=== PATIENT | male | born 1970 | race Caucasian/White ===

== ENCOUNTER 2019-11-26 20:56 | Emergency (ER) | payer MEDICAID, OTHER ==
[~2019-11-26] VITALS: Ht 185.4 cm; Wt 81.6 kg
[2019-11-26 21:05] VITALS: BP 145/86
--- NOTE | 2019-11-26 21:11 | NUR ---
ED Nurse Note: pt ambulated into ed from home CO s/p cellulitis on right buttock x 2 months. Pt states that he was recently seen at an Urgent Care at [facility] and was given a regimen of antibiotics and topical ointment. Previous tx was helpful for a short time but cellulitis returned shortly after ending regimen. Pt aao x 4, ambulates with steady gait. Site of cellulitis dry, cool to touch. ERMD at bedside. Awaiting further orders. Will continue to monitor.
[2019-11-26] MEDS ORDERED: Augmentin 875mg Tab ORAL ONE (21:15)
[2019-11-26] MEDS ORDERED: Lidocaine 1% MPF 10mg/ml 5ml INJ ONE (21:15)
[2019-11-26] MEDS ORDERED: cefTRIAXone 500mg Inj IM ONE (21:15)
[2019-11-26] MEDS ORDERED: AUGMENTIN 875-1 EAC1 ORAL (21:18)
[2019-11-26] MEDS ORDERED: NAPROXEN500 M1 ORAL (21:18)
[2019-11-26] MEDS ORDERED: Clindamycin 150mg cap ONE (21:20)
--- NOTE | 2019-11-26 21:25 | NUR ---
ED Nurse Note: all medications administered, pt tolerated well no ss of distress noted. will continue to monitor.
[2019-11-26 21:38] VITALS: BP 133/82
--- NOTE | 2019-11-26 21:38 | NUR ---
ER DISCHARGE NOTE: Patient is cleared to be discharged home per ERMD, pt is aox4, 100% on room air, with stable vital signs. pt was given dc and prescription instructions, pt was able to verbalize understanding, pt id band removed without complications. pt is able to ambulate with steady gait. pt took all belongings.
--- NOTE | 2019-11-26 23:26 | Emergency Room Report ---
History of Present Illness General Chief Complaint: Skin Rash/Abscess Source: Patient Present Illness HPI 49M c/o chronic R buttock cellulitis x 2 months. Worse when riding bike. Was improving when he was on ABx (kephlex) given to him by urgent care but he has run out and finds the rash coming back. Denies abscess, groin pain, fever, tenesmus, rectal bleeding, SOB, cough, CP or other symptoms. The patient's symptoms were gradual onset, severity was moderate, duration since 60 days Quality: hot Past medical history: Denies Past surgical history: Denies Smoking: ++ Alcohol use: Denies Drug use: Denies Review of systems: CONST: No fevers or chills, No night sweats PULMONARY: No productive cough, No shortness of breath CARDIAC: No chest pain, No palpitations GI: No vomiting, No diarrhea , No melena_or_BRBPR : No dysuria, No hematuria, No discharge NEURO: No new_focal_weakness_or_numbness, No confusion, No vision changes 14 point Review of Systems is otherwise negative except per HPI Physical Exam: GENERAL: Awake_alert_ nontoxic, no acute distress Spo2 98% on RA-normal EYES: Extraocular muscles are intact. Conjunctivae clear. Lids without swelling ENT: External nose and ear normal_in_appearance. Oropharynx clear. Head_atraumatic, Moist_oral_mucosa NECK: No JVD. No meningismus. No thyromegaly. Supple. Trachea midline RESP: Normal respiratory effort. Symmetric rise. No stridor. Clear_to_ausc ultation_No_rales_No_wheezes CARDIAC: Regular rate and regular rhytm. No_significant pedal edema. ABDOMEN: Soft. Nondistended. Nontender_No_rebound_or_guarding. EXAM: performed with VERONICA Zacarias at bedside. R buttock cellulitis. No palpable crepitus. No fournieres gangrene or scrotal cellulitis. No palpable absecss MSK: Normal muscle tone, without rigidity. Extremities without asymmetric deformity or swelling. SKIN: Warm and dry. No visible cyanosis or pallor NEUROLOGIC: Alert, oriented x3. Motor_and_sensation_grossly_intact. No truncal ataxia. Gait_normal Psych: Normal mood and affect, normal judgment and insight - COORDINATION OF CARE Case was discussed with: Patient Medical Decision Making/Plan: DDx: acute on chronic cellulitis vs dermatitis vs folliculitis Patient is afebrile and well appearing. He is noted to have simple cellulitis to R gluteal fold. No inguinal or perineal involvement. No palpable crepitus or visualized abscess. Pt received abx in ED including rocephin and clinda. Will DC on augmentin. Recommend 2-3 day wound check with his PMD> Strict return ER precautions discussed for any new, persistent or worsening symptoms. Allergies: Coded Allergies: No Known Allergies (Unverified , 11/26/19) COVID-19 Screening Contact w/high risk pt: No Experienced COVID-19 symptoms?: No COVID-19 Testing performed POLISHER EYEGLASS FRAMES: No Nursing Documentation-PMH Past Medical History: No Stated History Physical Exam Vital Signs Date Time Temp Pulse Resp B/P (MAP) Pulse Ox O2 Delivery O2 Flow Rate FiO2 11/26/19 21:00 98.1 76 16 145/86 (105) 98 Room Air Sp02 EP Interpretation: reviewed, normal Medical Decision Making Diagnostic Impression: Primary Impression: Cellulitis of buttock, right Last Vital Signs Date Time Temp Pulse Resp B/P (MAP) Pulse Ox O2 Delivery O2 Flow Rate FiO2 11/26/19 21:38 98.1 82 16 133/82 98 Room Air Disposition: HOME, SELF-CARE Admit Decision Time: 21:38 Condition: Stable Scripts Naproxen* (NAPROXEN*) 500 Mg Tablet.dr 500 MG ORAL TWICE A DAY for 7 Days, #14 TAB Prov: Yamilex Edgar D.O. 11/26/19 Amoxicillin/Potassium Clav 875-125* (AUGMENTIN 875-125 TABLET*) 1 Each Tablet 1 TAB ORAL TWICE A DAY for 10 Days, #20 TAB Prov: Yamilex Edgar D.O. 11/26/19 Referrals: [facility] (PCP) Maximo Godoy [facility] Patient Instructions: Rash Additional Instructions: Instructions for patient/diesel power mechanic: Follow up with your physician in 1-2 days for wound check. Keep your buttock area clean and dry as much as possible Stop smoking Follow-up with your doctor sooner if your condition requires a more timely clinical reevaluation. Return to the emergency department immediately if you feel that your condition is worsening or if you have any new or concerning symptoms. Review your discharge instructions and take any prescriptions given as instructed. [facility] PROVIDES FREE OR LOW-COST HEALTH SERVICES TO PEOPLE WHO CAN SHOW PROOF THAT THEY LIVE IN [facility]. TO FIND MORE CLINICS PARTNERED WITH [facility] TO PROVIDE SERVICE, PLEASE CALL . Yamilex Edgar D.O. Nov 26, 2019 23:26
[2019-11-27] MEDS ORDERED: Clindamycin 150mg cap ORAL SCH
== END 2019-11-26 21:38 | disposition home or self-care (01) ==
LOC: EMR 21:27
DX: L03.317 Cellulitis of buttock (principal)
CPT/HCPCS: 96372; J0696; Z7502; 99283

== ENCOUNTER 2019-12-28 19:57 | Emergency (ER) | payer OTHER ==
[~2019-12-28] VITALS: Ht 185.4 cm; Wt 81.6 kg
[~2019-12-28 19:57] MED LIST: AUGMENTIN 875-1 EAC1 ORAL; NAPROXEN500 M1 ORAL
[2019-12-28 20:20] VITALS: BP 129/91
--- NOTE | 2019-12-28 20:20 | NUR ---
ED Nurse Note: Patient walked into ED for c/o rash to buttock area x 2/3 months. He states he has seen multiple doctors for same complaint and has been given PO antibx with not much relief. R buttock area is warm and red. No abscess with drainage noted. He is aaox4, breathing is normal and unlabored.
[2019-12-28] MEDS ORDERED: Bactrim-DS 1 tab ORAL ONE (20:30)
[2019-12-28] MEDS ORDERED: Cephalexin 500mg cap ORAL ONE (20:30)
[2019-12-28 20:50] VITALS: BP 128/85
[2019-12-28] MEDS ORDERED: CEPHALEXIN500 MG ORAL (20:50)
[2019-12-28] MEDS ORDERED: BACTRIM DS TAB1 EAC1 ORAL (20:50)
--- NOTE | 2019-12-28 20:50 | NUR ---
ER DISCHARGE NOTE: Patient is cleared to be discharged per ERMD, pt is aox4, on room air, with stable vital signs. pt was given dc and prescription instructions, pt was able to verbalize understanding, pt id band removed. pt is able to ambulate with steady gait. pt took all belongings.
--- NOTE | 2019-12-30 15:19 | Emergency Room Report ---
History of Present Illness General Chief Complaint: Skin Rash/Abscess Source: Patient Present Illness HPI 49-year-old male presents to ED for cellulitis to the buttock. To the right buttock has been there for months. States he gets treated with antibiotics and then it resolves but then it comes back. Denies pain. States it is itchy. Denies fevers or chills. No other aggravating relieving factors. Denies any other associated symptoms Allergies: Coded Allergies: No Known Allergies (Unverified , 11/26/19) COVID-19 Screening Contact w/high risk pt: No Experienced COVID-19 symptoms?: No COVID-19 Testing performed WEBBING WEAVER: No Patient History Past Medical History: none Past Surgical History: none Pertinent Family History: none Immunizations: UTD Reviewed Nursing Documentation: PMH: Agreed; PSxH: Agreed Nursing Documentation-PMH Past Medical History: No Stated History Review of Systems All Other Systems: negative except mentioned in HPI Physical Exam Vital Signs Date Time Temp Pulse Resp B/P (MAP) Pulse Ox O2 Delivery O2 Flow Rate FiO2 12/28/19 20:00 98.1 85 18 129/91 (104) 95 Room Air Sp02 EP Interpretation: reviewed, normal General Appearance: no apparent distress, alert, GCS 15, non-toxic Head: normocephalic, atraumatic Eyes: bilateral eye normal inspection, bilateral eye PERRL ENT: hearing grossly normal, normal pharynx, no angioedema, normal voice Neck: full range of motion, supple/symm/no masses Respiratory: chest non-tender, lungs clear, normal breath sounds, speaking full sentences Cardiovascular #1: regular rate, rhythm, no edema Cardiovascular #2: 2+ carotid (R), 2+ carotid (L), 2+ radial (R), 2+ radial (L), 2+ dorsalis pedis (R), 2+ dorsalis pedis (L) Gastrointestinal: normal bowel sounds, non tender, soft, non-distended, no guarding, no rebound Rectal: deferred Genitourinary: normal inspection, no CVA tenderness Musculoskeletal: back normal, normal range of motion, gait/station normal, non- tender Neurologic: alert, motor strength/tone normal, oriented x3, sensory intact, responsive, speech normal Psychiatric: judgement/insight normal, memory normal, mood/affect normal, no suicidal/homicidal ideation Reflexes: 3+ bicep (R), 3+ bicep (L), 3+ tricep (R), 3+ tricep (L), 3+ knee (R), 3+ knee (L) Skin: other - erythema/induration to R buttock. no fluctuance or discharge Lymphatic: no adenopathy Medical Decision Making Diagnostic Impression: Primary Impression: Cellulitis of buttock, right ER Course Hospital Course 49-year-old male presents with redness itchiness to right buttock Differential diagnoses include: Cellulitis, dermatitis, insect bite, abscess Clinical course Patient placed on stretcher. After initial history, physical exam reveals a male in no acute distress. There is circumcised area of induration and erythema to the right buttock. No fluctuance or discharge. No pain. Afebrile, nontoxic-appearing. I discussed findings with patient. Given multiple rounds of antibiotics without resolution I offered option for hinojosa and IV antibiotics. Patient declined stating he like to try 1 more round of antibiotics. Will prescribe Keflex and Bactrim. Safe for discharge close outpatient follow-up Diagnosis - cellulitis of buttock stable and discharged to home with prescription for Bactrim, Keflex. Instructed to followup with PMD. Instructed return to ED if symptoms recur or worsen Last Vital Signs Date Time Temp Pulse Resp B/P (MAP) Pulse Ox O2 Delivery O2 Flow Rate FiO2 12/28/19 20:50 98.1 80 18 128/85 99 Room Air Status: improved Disposition: HOME, SELF-CARE Condition: Stable Scripts Trimethoprim/Sulfamethoxazole 160/800* (BACTRIM DS TABLET*) 1 Each Tablet 1 TAB ORAL Q12H, #14 TAB 0 Refills Prov: Samm Solano MD 12/28/19 Cephalexin* (KEFLEX*) 500 Mg Capsule 500 MG ORAL EVERY 6 HOURS, #28 CAP Prov: Samm Solano MD 12/28/19 Referrals: [facility],REFERRING (PCP) Patient Instructions: Cellulitis, [id number] Samm Solano MD Dec 30, 2019 15:19
== END 2019-12-28 20:50 | disposition home or self-care (01) ==
LOC: EMR 20:35
DX: L03.317 Cellulitis of buttock (principal)
CPT/HCPCS: 99282

== ENCOUNTER 2020-02-04 00:24 | Emergency (ER) | payer OTHER ==
[~2020-02-04] VITALS: Ht 185.4 cm; Wt 81.6 kg
[~2020-02-04 00:24] MED LIST changes: +BACTRIM DS TAB1 EAC1 ORAL; +CEPHALEXIN500 MG ORAL
[2020-02-04 00:38] VITALS: BP 153/87
[2020-02-04] MEDS ORDERED: VUSION OINTMENT50 GM TP (00:59)
[2020-02-04] MEDS ORDERED: DOXYCYCLINE MO100 MG ORAL (00:59)
--- NOTE | 2020-02-04 01:00 | Emergency Room Report ---
History of Present Illness General Chief Complaint: Skin Rash/Abscess Source: Patient, Medical Record Present Illness HPI 50-year-old male with no past medical history. He presents with chief complaint of itchiness to his buttock. This been ongoing for 2 weeks. He has been on antibiotics with much relief. He is also use Bactroban and it did not help. No fever chills. Itchiness. No drainage. No swelling. Most of it is to his right buttock. Worse with scratching. Better leaving it alone. Seen a toaster element repairer. Allergies: Coded Allergies: No Known Allergies (Unverified , 11/26/19) COVID-19 Screening Contact w/high risk pt: No Experienced COVID-19 symptoms?: No COVID-19 Testing performed EDUCATIONAL RESOURCE COORDINATOR: No Patient History Past Medical History: none, see triage record, old chart reviewed Past Surgical History: none Pertinent Family History: none Social History: Denies: smoking Immunizations: other Reviewed Nursing Documentation: PMH: Agreed; PSxH: Agreed Nursing Documentation-PMH Past Medical History: No Stated History Review of Systems Eye: Denies: eye pain, blurred vision ENT: Denies: ear pain, nose congestion, throat swelling Respiratory: Denies: cough, shortness of breath Cardiovascular: Denies: chest pain, palpitations Gastrointestinal: Denies: abdominal pain, diarrhea, nausea, vomiting Musculoskeletal: Denies: back pain, joint pain Skin: Reports: rash Neurological: Denies: headache, numbness Endocrine: Denies: increased thirst, increased urine Hematologic/Lymphatic: Denies: easy bruising All Other Systems: negative except mentioned in HPI Physical Exam Vital Signs Date Time Temp Pulse Resp B/P (MAP) Pulse Ox O2 Delivery O2 Flow Rate FiO2 02/04/20 00:33 98.8 80 18 170/90 (116) 97 Room Air Vitals with high blood pressure Sp02 EP Interpretation: reviewed, normal General Appearance: well appearing, no apparent distress, alert Head: normocephalic, atraumatic Eyes: bilateral eye PERRL, bilateral eye EOMI ENT: hearing grossly normal, normal pharynx Neck: full range of motion, supple, no meningismus Respiratory: chest non-tender, lungs clear, normal breath sounds Cardiovascular #1: regular rate, rhythm, no murmur Gastrointestinal: normal bowel sounds, non tender, no mass, no organomegaly, no bruit, non-distended Musculoskeletal: back normal, normal range of motion, gait/station normal Psychiatric: mood/affect normal Skin: other - Right buttock: Skin is dry with cracking. There is also hyperpigmentation and scaliness. No drainage or abscess. Medical Decision Making Diagnostic Impression: Primary Impression: Dermatitis ER Course This patient presents with a dermatitis and possible cellulitis of the buttock. Will switch antibiotics and treat for possible fungal infection also. Last Vital Signs Date Time Temp Pulse Resp B/P (MAP) Pulse Ox O2 Delivery O2 Flow Rate FiO2 02/04/20 00:38 98.8 82 18 153/87 97 Room Air Status: unchanged Disposition: HOME, SELF-CARE Condition: Stable Scripts Miconazole Nitrate/Zinc Ox/Pet (VUSION OINTMENT) 50 Gm Oint...g. 50 GM TP TID, #50 GM Prov: Piotr White MD 02/04/20 Doxycycline Monohydrate* (DOXYCYCLINE MONOHYDRATE*) 100 Mg Capsule 100 MG ORAL Q12H, #20 CAP 0 Refills Prov: Piotr White MD 02/04/20 Referrals: [facility],REFERRING (PCP) Additional Instructions: Follow-up with your doctor in 7 days. I recommend a referral to see a toaster element repairer for further work-up and possible biopsy. Return if symptoms wor sen. Piotr White MD Feb 04, 2020 01:00
[2020-02-04 01:03] VITALS: BP 150/71
== END 2020-02-04 01:03 | disposition home or self-care (01) ==
LOC: EMR 00:54
DX: L30.9 Dermatitis, unspecified (principal)
CPT/HCPCS: 87070; 87181; 87205; Z7502; 99283